=== PATIENT | female | born 1985 | race African-American/Black ===

== ENCOUNTER 2019-05-18 07:17 | Emergency (ER) | payer SELFPAY ==
[~2019-05-18] VITALS: Ht 172.7 cm; Wt 77.0 kg
[2019-05-18 07:18] VITALS: BP 146/98
[2019-05-18] MEDS ORDERED: IBUPROFEN 800MG TABLET PO ONE (08:00)
== END 2019-05-18 08:43 | disposition home or self-care (01) ==
LOC: ER 07:17
DX: M54.5 Low back pain (principal); V49.88XA Car occupant (driver) (passenger) injured in other specified transport accidents, initial encounter; Y93.89 Activity, other specified; Y92.89 Other specified places as the place of occurrence of the external cause; Y99.8 Other external cause status
CPT/HCPCS: 99283